=== PATIENT | female | born 1995 | race Caucasian/White ===

== ENCOUNTER 2019-09-10 21:57 | Emergency (ER) | payer OTHER ==
[~2019-09-10] VITALS: Ht 157.5 cm; Wt 77.3 kg
[2019-09-10] MEDS ORDERED: MIRE1IUD IU (22:11)
[2019-09-10] MEDS ORDERED: LIDOCAINE 5% (LIDODERM) PATCH TD ONE (22:30)
[2019-09-10] MEDS ORDERED: ACETAMINOPHEN 325 MG TAB PO ONE (22:30)
[2019-09-10] MEDS ORDERED: methocarbamoL 750 MG TAB PO ONE (22:30)
--- NOTE | 2019-09-10 23:15 | REPVR ---
PROCEDURE INFORMATION: Exam: US Pelvis Complete, Transabdominal and US Pelvis, Transvaginal Exam date and time: 09/10/2019 11:04 PM Age: 23 years old Clinical indication: Pelvic pain; Additional info: Vaginal pain, can't find iud strings, llq pain TECHNIQUE: Imaging protocol: Real-time transabdominal and transvaginal pelvic ultrasound (complete) with image documentation. Transvaginal imaging was used for better evaluation of the endometrium and adnexa. COMPARISON: No relevant prior studies available. FINDINGS: Uterus/cervix: Uterus measures 6.6 x 3.0 x 4.7 cm. Endometrium measures 5 mm. IUD appears in appropriate position. No discrete uterine mass to the degree visualized. Right adnexa: Right ovary measures 3.1 x 1.6 x 2.3 centimetres. Right ovary appears within normal limits without torsion. Left adnexa: Left ovary measures 2.2 x 1.1 x 2.3 centimetres. Left ovary appears within normal limits without torsion. Free fluid: None. Bladder: Normal. IMPRESSION: 1. IUD appears in appropriate position. 2. No acute abnormality. Electronically signed by: Lenin Palomino On 09/10/2019 23:14:45 PM
[2019-09-11] MEDS ORDERED: ASPE4PAD TOP (00:09)
[2019-09-11] MEDS ORDERED: ROBA750T4 PO (00:09)
[2019-09-11 00:13] VITALS: BP 125/67
[2019-09-11] MEDS ORDERED: KETOROLAC 60MG 2ML VIAL IM ONE (00:15)
[2019-09-11] MEDS ORDERED: **NOTE PATIENT COMMENT** MISC XX SCH (21:00)
== END 2019-09-11 00:17 | disposition home or self-care (01) ==
LOC: M ED 21:57
DX: M54.5 Low back pain (principal); Z97.5 Presence of (intrauterine) contraceptive device
CPT/HCPCS: 76830; 76856; 84702; 93976; 96372; 99283; J1885